=== PATIENT | female | born 1995 | race Caucasian/White ===

== ENCOUNTER 2017-11-02 18:23 | Inpatient (IN) | payer BC ==
--- NOTE | 2017-11-02 19:08 | EDM.PDOC ---
<Zeus Vasquez - Last Filed: 11/02/17 22:26> ED HPI GENERAL MEDICAL PROBLEM - General Chief Complaint: Abdominal Pain Stated Complaint: Diff Breathing Time Seen by Provider: 11/02/17 19:07 Source of Information: Reports: Patient History Limitations: Reports: No Limitations - History of Present Illness INITIAL COMMENTS - FREE TEXT/NARRATIVE: HISTORY AND PHYSICAL: History of present illness: Patient is a 22-year-old female here with complaint of SOB x 2 days. Patient states she's had a cough for the past few days. She denies chest pain but states she has had some pain in her back. She denies any smoking history. She denies abdominal pain, nausea, vomiting, diarrhea, fevers, chills. Patient reports that she miscarried last week at 10 weeks gestation. She was in [facility] was worked up for this then. She has not started control since then. Review of systems: As per history of present illness and below otherwise all systems reviewed and negative. Past medical history: As per history of present illness and as reviewed below otherwise noncontributory. Surgical history: As per history of present illness and as reviewed below otherwise noncontributory. Social history: No reported history of drug or alcohol abuse. Family history: As per history of present illness and as reviewed below otherwise noncontributory. Physical exam: HEENT: Atraumatic, normocephalic, pupils reactive, negative for conjunctival pallor or scleral icterus, mucous membranes moist, throat clear, neck supple, nontender, trachea midline. Lungs: Clear to auscultation, breath sounds equal bilaterally, chest nontender. Heart: S1S2, regular, negative for clicks, rubs, or JVD. Abdomen: Soft, nondistended, nontender. Negative for masses or hepatosplenomegaly. Negative for costovertebral tenderness. Pelvis: Stable nontender. Genitourinary: Deferred. Rectal: Deferred. Extremities: Atraumatic, negative for cords or calf pain. Neurovascular unremarkable. Neuro: Awake, alert, oriented. Cranial nerves II through XII unremarkable. Cerebellum unremarkable. Motor and sensory unremarkable throughout. Exam nonfocal. Notes: Patient reports that she miscarried last week at 10 weeks gestation. She was in [facility] was worked up for this then. She has not started control since then. Diagnostics: Chest x-ray D-dimer CT Angio Therapeutics: DuoNeb Impression: Acute bronchitis Plan: 1. Use ventolin inhaler every 4-6 hours as needed for cough/shortness of breath 2. Follow up with primary care provider 3. Return to ED as needed as discussed Definitive disposition and diagnosis as appropriate pending reevaluation and review of above. ribs Pain Score (Numeric/FACES): 5 - Related Data Allergies Allergy/AdvReac Type Severity Reaction Status Date / Time No Known Allergies Allergy Verified 11/02/17 19:29 Home Meds: Home Meds Albuterol [Ventolin HFA] 1 puff .XX Q4HR #1 inhaler 11/02/17 [Rx] ED ROS GENERAL - Review of Systems Review Of Systems: ROS reveals no pertinent complaints other than HPI. ED EXAM, GENERAL - Physical Exam Exam: See Below (see dictation) Course - Vital Signs Last Recorded V/S: Last Vital Signs Temp 36.7 C 11/02/17 19:29 Pulse 111 H 11/02/17 19:29 Resp 18 11/02/17 19:29 BP 116/77 11/02/17 19:29 Pulse Ox 97 11/02/17 19:29 - Orders/Labs/Meds Orders: Active Orders 24 hr Category Date Time Status RT Aerosol Therapy [RC] ASDIRECTED Care 11/02/17 19:29 Active Ang Chest [CT] Stat Exams 11/02/17 21:12 Ordered Chest 2V [CR] Stat Exams 11/02/17 19:07 Taken HCG QUALITATIVE,URINE [URCHEM] Stat Lab 11/02/17 19:17 Ordered Labs: Laboratory Tests 11/02/17 11/02/17 Range/Units 19:17 20:42 D-Dimer, Quantitative 14.20 H (0.0-0.52) mg/LFEU Urine HCG, Qual POSITIVE (NEGATIVE) Meds: Medications Discontinued Medications Generic Name Dose Route Start Last Admin Trade Name Freq PRN Reason Stop Dose Admin Albuterol/Ipratropium 3 ml 11/02/17 19:29 11/02/17 19:39 Duoneb 3.0-0.5 Mg/3 Ml NEB 11/02/17 19:30 3 ml ONETIME ONE Administration Iopamidol 50 ml 11/02/17 22:08 11/02/17 22:08 Isovue Multipack-370 (76%) IVPUSH 11/02/17 22:09 50 ml ONETIME STA Administration Departure - Departure Time of Disposition: 22:28 Disposition: Admitted As Inpatient 65 Condition: Good Clinical Impression: Pulmonary embolism - Discharge Information Prescriptions: Albuterol [Ventolin HFA] 1 puff .XX Q4HR #1 inhaler Referrals: PCP,None [Primary Care Provider] - Forms: ED Department Discharge Additional Instructions: The following information is given to patients seen in the emergency department who are being discharged to home. This information is to outline your options for follow-up care. We provide all patients seen in our emergency department with a follow-up referral. The need for follow-up, as well as the timing and circumstances, are variable depending upon the specifics of your emergency department visit. If you don't have a primary care physician on staff, we will provide you with a referral. We always advise you to contact your personal physician following an emergency department visit to inform them of the circumstance of the visit and for follow-up with them and/or the need for any referrals to a consulting specialist. The emergency department will also refer you to a specialist when appropriate. This referral assures that you have the opportunity for follow-up care with a specialist. All of these measure are taken in an effort to provide you with optimal care, which includes your follow-up. Under all circumstances we always encourage you to contact your private physician who remains a resource for coordinating your care. When calling for follow-up care, please make the office aware that this follow-up is from your recent emergency room visit. If for any reason you are refused follow-up, please contact the [facility] Emergency Department at and asked to speak to the emergency department charge nurse. [facility] [address] [place] [id number] [address] [address] 1. Use ventolin inhaler every 4-6 hours as needed for cough/shortness of breath 2. Follow up with primary care provider 3. Return to ED as needed as discussed <Amilcar Conte - Last Filed: 11/02/17 22:57> ED HPI GENERAL MEDICAL PROBLEM - History of Present Illness INITIAL COMMENTS - FREE TEXT/NARRATIVE: Patient CTA demonstrates extensive pulmonary embolic disease patient's clinical course in ED has remained unremarkable patient was given Lovenox a milligram per kilogram subcutaneous in the emergency department I discussed case with hospitalist she will be admitted to a telemetry bed with diagnosis of pulmonary embolism Departure - Departure Condition: Good, Poor
[2017-11-02] MEDS ORDERED: Albuterol/Ipratropium 3.0-0.5 MG/3 ML Neb Soln NEB ONE (19:29)
[2017-11-02] MEDS ORDERED: Iopamidol 755 MG/ML 500 ML Multipack Bottle IVPUSH STA (22:08)
[2017-11-02] MEDS ORDERED: Enoxaparin 100 MG/1 ML Syringe SUBCUT ONE (22:58)
[2017-11-02] MEDS ORDERED: Enoxaparin 100 MG/1 ML Syringe ONE (23:02)
[2017-11-03] MEDS ORDERED: HYDROmorphone 1 MG/ML Syringe IVPUSH PRN (01:32)
[2017-11-03] MEDS ORDERED: Acetaminophen/oxyCODONE 325-5 MG Tab PO PRN (01:32)
[2017-11-03] MEDS ORDERED: Ondansetron 4 MG/2 ML SDV IVPUSH PRN (01:34)
[2017-11-03 05:38] LABS: CHLORIDE,CL 107 mmol/L (98-107); SODIUM,NA 142 mmol/L (136-145)
[2017-11-03] MEDS ORDERED: Potassium Chloride 20 MEQ Tab.ER PO SCH (09:15)
[2017-11-03] MEDS ORDERED: Enoxaparin 150 MG/1 ML Syringe SUBCUT SCH (10:15)
[2017-11-03] MEDS ORDERED: Enoxaparin 60 MG/0.6 ML Syringe SUBCUT SCH (11:00)
[2017-11-03] MEDS ORDERED: Fluticasone Propionate Nasal Spray 16 GM Bottle NASBOTH SCH (14:30)
--- NOTE | 2017-11-03 20:47 | CR ---
EXAM DATE: 11/03/17 PATIENT'S AGE: 22 Patient: SANDY SAINI Facility: [place], [place] Site . Site : 1995 Study: XRay Chest [id number]/23/2018 8:08:26 PM Ordering Physician: Doctor Vargas Final Report: INDICATION: Shortness of breath. TECHNIQUE: PA and lateral chest. FINDINGS: Clear lungs. Normal heart size and pulmonary vascularity. Bilateral breast implants. Bilateral nipple adornments. Normal included skeletal thorax. IMPRESSION: No acute cardiopulmonary process identified. Dictated by Jim Mohan MD @ Nov 02 2017 8:13PM (Electronic Signature) Report Signed by Proxy. LIZZY
--- NOTE | 2017-11-03 20:56 | CT ---
EXAM DATE: 11/03/17 PATIENT'S AGE: 22 Patient: SANDY SAINI Facility: [place], [place] Site . Site : 1994 Study: CT Chest Angio [id number]/23/2018 10:06:08 PM Ordering Physician: Doctor Vargas Final Report: INDICATION: Elevated D-dimer. SOB TECHNIQUE: CT chest pulmonary PE protocol acquired with IV contrast. COMPARISON: None FINDINGS: Cardiovascular structures: Multiple pulmonary emboli within the right lobar, segmental and subsegmental pulmonary arteries, and left segmental and subsegmental pulmonary arteries, involving all lobes. Normal cardiac size and aortic caliber. Mediastinum and nile: Soft tissue density in the anterior mediastinum consistent with thymic tissue. No abnormally enlarged lymph nodes. Lungs: No consolidation. Few small pulmonary nodular opacities, probably postinflammatory. Pleura and pericardium: No effusions. Chest wall and axilla: No mass or adenopathy. Upper abdomen: Unremarkable. Bones: No significant findings. IMPRESSION: Extensive pulmonary embolic disease, right greater than left, involving all lobes. The findings were discussed with Dr. Conte, by phone, on 11/02/2017 at 10:54 p.m.. Dictated by Mike Wright MD @ 11/02/2017 10:55:56 PM Please note that all CT scans at this facility use dose modulation, iterative reconstruction, and/or weight-based dosing when appropriate to reduce radiation dose to as low as reasonably achievable. Dictated by: Mike Wright MD @ 11/02/2017 22:56:04 (Electronic Signature) Report Signed by Proxy. MTDD
--- NOTE | 2017-11-03 21:55 | PCM.HP ---
H&P History of Present Illness - General Date of Service: 11/03/17 Admit Problem/Dx: Admission Diagnosis/Problem Admission Diagnosis/Problem Pulmonary embolism Source of Information: Patient History Limitations: Reports: No Limitations - History of Present Illness Initial Comments - Free Text/Narative: Patient 22 y old female who had a miscarriage seen by OB 1 week ago presented to hospital due to SOB with exertion for the past 3 days. She traveled to recently to [place] with her fiancee . Says she her grandmother had blood clots at older age, no other family history of blood cloths. Onset of Symptoms: Reports: Gradual Duration of Symptoms: Reports: Day(s): Upper Back Pain Score (Numeric/FACES): 3 ribs Pain Score (Numeric/FACES): 5 - Related Data Allergies/Adverse Reactions: Allergies Allergy/AdvReac Type Severity Reaction Status Date / Time No Known Allergies Allergy Verified 11/02/17 19:29 Home Medications: Home Meds Apixaban [Eliquis] 5 mg PO BID 60 Days #120 tablet 11/03/17 [Rx] Apixaban [Eliquis] 10 mg PO BID #28 tablet 11/03/17 [Rx] Fluticasone Propionate [Flonase] 1 gm NASBOTH DAILY #1 bottle 11/03/17 [Rx] Past Medical History [employer] History: Reports: Spontaneous Social & Family History - Family History Family Medical History: Noncontributory - Tobacco Use Smoking Status *Q: Former Smoker Used Tobacco, but Quit: Yes Month/Year Tobacco Last Used: 09/2017 Second Hand Smoke Exposure: Yes - Caffeine Use Caffeine Use: Reports: Soda - Recreational Drug Use Recreational Drug Use: No H&P Review of Systems - Review of Systems: Review Of Systems: See Below General: Reports: No Symptoms HEENT: Reports: Other (nasal congestion) Pulmonary: Reports: Shortness of Breath Cardiovascular: Reports: Dyspnea on Exertion Gastrointestinal: Reports: No Symptoms Genitourinary: Reports: No Symptoms Musculoskeletal: Reports: Back Pain Skin: Reports: No Symptoms Psychiatric: Reports: Agitation Neurological: Reports: No Symptoms Exam - Exam Exam: See Below - Vital Signs Vital Signs: Last Vital Signs Temp 96.8 F 11/03/17 12:00 Pulse 96 11/03/17 12:00 Resp 18 11/03/17 12:00 BP 107/64 11/03/17 12:00 Pulse Ox 97 11/03/17 12:00 Weight: 149 lb 3.2 oz - Exam General: Alert, Oriented, Cooperative HEENT: Conjunctiva Clear, Rhinitis Neck: Supple, Trachea Midline Lungs: Clear to Auscultation, Normal Respiratory Effort Cardiovascular: Regular Rate, Regular Rhythm, Normal S1, Normal S2 GI/Abdominal Exam: Normal Bowel Sounds, Soft, Non-Tender, No Organomegaly, No Distention (Female) Exam: Normal External Exam Rectal (Female) Exam: Normal Exam Back Exam: Normal Inspection Extremities: Normal Inspection Skin: Warm, Dry Neurological: Cranial Nerves Intact Neuro Extensive - Mental Status: Alert, Oriented x3 - Patient Data Lab Results Last 24 hrs: Laboratory Results - last 24 hr 11/03/17 11/03/17 Range/Units 05:05 05:05 WBC 8.91 (4.0-11.0) K/uL RBC 4.30 (4.30-5.90) M/uL Hgb 13.0 (12.0-16.0) g/dL Hct 38.1 (36.0-46.0) % MCV 88.6 (80.0-98.0) fL MCH 30.2 (27.0-32.0) pg MCHC 34.1 (31.0-37.0) g/dL RDW Std Deviation 41.3 (28.0-62.0) fl RDW Coeff of Saqib 13 (11.0-15.0) % Plt Count 206 (150-400) K/uL MPV 9.50 (7.40-12.00) fL Neut % (Auto) 64.9 (48.0-80.0) % Lymph % (Auto) 25.6 (16.0-40.0) % [place] % (Auto) 8.4 (0.0-15.0) % Eos % (Auto) 0.9 (0.0-7.0) % Baso % (Auto) 0.2 (0.0-1.5) % Neut # (Auto) 5.8 H (1.4-5.7) K/uL Lymph # (Auto) 2.3 (0.6-2.4) K/uL [place] # (Auto) 0.8 (0.0-0.8) K/uL Eos # (Auto) 0.1 (0.0-0.7) K/uL Baso # (Auto) 0.0 (0.0-0.1) K/uL Nucleated RBC % 0.0 /100WBC Nucleated RBCs # 0 K/uL Sodium 142 (136-145) mmol/L Potassium 3.4 L (3.5-5.1) mmol/L Chloride 107 (98-107) mmol/L Carbon Dioxide 25.9 (21.0-32.0) mmol/L BUN 10 (7.0-18.0) mg/dL Creatinine 0.5 L (0.6-1.0) mg/dL Est Cr Clr Drug Dosing 151.11 mL/min Estimated GFR (MDRD) > 60.0 ml/min Glucose 108 H (74-106) mg/dL Calcium 8.6 (8.5-10.1) mg/dL Total Bilirubin 0.2 (0.2-1.0) mg/dL AST 13 L (15-37) IU/L ALT 30 (14-63) IU/L Alkaline Phosphatase 82 (46-116) U/L Total Protein 6.3 L (6.4-8.2) g/dL Albumin 2.6 L (3.4-5.0) g/dL Globulin 3.7 H (2.0-3.5) g/dL Albumin/Globulin Ratio 0.7 L (1.3-2.8) Result Diagrams: 11/03/17 05:05 11/03/17 05:05 EKG INTERPRETATION Rhythm: NSR - Problem List (1) Pulmonary embolism SNOMED Code(s): 96684744 ICD Code: I26.99 - OTHER PULMONARY EMBOLISM WITHOUT ACUTE COR PULMONALE Status: Acute Problem List Initiated/Reviewed/Updated: Yes Orders Last 24hrs: Active Orders 24 hr Category Date Time Status Patient Status [ADT] Stat ADT 11/02/17 22:58 Active Ready for Discharge [RC] PER UNIT ROUTINE Care 11/03/17 13:49 Active Telemetry Monitoring [Cardiac Monitoring] [RC] Q8H Care 11/02/17 23:28 Active Resuscitation Status Routine Resus Stat 11/03/17 12:21 Ordered Assessment/Plan Comment:: patient started in Er on Lovenox 70 mg sq q 12 h , her vital signs stable in the morning , saturating well at room air , patient was recommended to have hypercoagulable work up as outpatient and she was observed on the floor and telemetry for more than 12 h and she was fine , no pain medication requested . She was discharged home with Eliquis 10 mg po BID for 7 days followed by Eliquis 5 mg po BID for a total of 6 mo , patient to have cardiac echo, f/up with pCP For nasal congestion she was given fluticasone. Discharge summary Patient started in Er on Lovenox 70 mg sq q 12 h , her vital signs stable in the morning , saturating well at room air , patient was recommended to have hypercoagulable work up as outpatient and she was observed on the floor and telemetry for more than 12 h and she was fine , no pain medication requested . She was discharged home with Eliquis 10 mg po BID for 7 days followed by Eliquis 5 mg po BID for a total of 6 mo , f/up with pCP. Patient was told that if she has black stools or blood in stool or in Urine she needs to come immediately to ER. She was given prescription for echo as outpatient . She was also instructed about the importance to take her medication cause otherwise she can be fatal
== END 2017-11-03 15:42 | disposition home or self-care (01) | DRG 134 ==
LOC: MW.ED 18:23 → MW.MS 11-03 00:06
PROVIDERS: ADMIT Internal Medicine; ATTEND Internal Medicine
DX: I26.99 Other pulmonary embolism without acute cor pulmonale (principal); J20.9 Acute bronchitis, unspecified; Z87.891 Personal history of nicotine dependence; Z79.51 Long term (current) use of inhaled steroids
CPT/HCPCS: 36415; 71046; 71046-26; 71275; 71275-26; 80053; 81025; 85025; 85379; 94640; 96372; 99285-25; A9270-GY; J1650; J7620-GY; Q9967